=== PATIENT | female | born 1985 | race Caucasian/White ===

== ENCOUNTER 2018-05-05 16:41 | Emergency (ER) | payer OTHER ==
[2018-05-05 19:12] LABS: URINE BLOOD (Dip) POC 3+ (NEGATIVE); URINE GLUCOSE (Dip) POC Negative (NEGATIVE); URINE KETONES (Dip) POC Trace (NEGATIVE); URINE LEUKOCYTE EST (Dip) POC 1+ (NEGATIVE); URINE NITRITE (Dip) POC Negative (NEGATIVE); URINE TOTAL PROTEIN POC 2+ (NEGATIVE)
[2018-05-05 19:12] LABS: URINE PH (Dip) POC 6.5 (5.0-8.5)
[2018-05-05] MEDS: DEXAMETHASONE 10 MG/ML 1 ML INJ IM (19:17)
[2018-05-05] MEDS: KETOROLAC 60 MG INJ IM (19:20)
== END 2018-05-05 19:42 | disposition home or self-care (01) ==
LOC: FTE 16:41
DX: N39.0 Urinary tract infection, site not specified (principal); M54.41 Lumbago with sciatica, right side
CPT/HCPCS: 81003; 81025; 96372; 99284-25